=== PATIENT | male | born 1995 | race African-American/Black ===

== ENCOUNTER 2024-04-18 21:56 | Emergency (ER) | payer OTHER ==
[2024-04-18 22:03] VITALS: BP 128/97; PULSE 58; RESP 18; TEMP 98.4; BMI 23.7
== END 2024-04-18 22:41 | disposition home or self-care (01) ==
LOC: JER 21:56
DX: S06.0X0A Concussion without loss of consciousness, initial encounter (principal); M25.561 Pain in right knee; V49.40XA Driver injured in collision with unspecified motor vehicles in traffic accident, initial encounter; Y92.410 Unspecified street and highway as the place of occurrence of the external cause
CPT/HCPCS: 99282-25